=== PATIENT | female | born 1985 | race Caucasian/White ===

== ENCOUNTER 2017-04-24 06:13 | Day surgery (SDC) | payer SELFPAY ==
[2017-04-17 10:26] VITALS: BMI 21.4
[2017-04-24] MEDS ORDERED: HEPARIN NA (PORCINE) 5,000 UNITS/ML 1ML VIAL ONE (06:40)
[2017-04-24] MEDS ORDERED: EPINEPHrine 1:1,000 1 MG/1 ML - 30ML VIAL (INJECTION) ONE (07:29)
[2017-04-24] MEDS ORDERED: LIDOCAINE HCL 1%, 10 MG/ML (20ML VIAL) ONE (07:29)
[2017-04-24] MEDS ORDERED: MIDAZOLAM HCL 2 MG/2 ML SINGLE DOSE VIAL ONE (08:07)
[2017-04-24] MEDS ORDERED: SCOPOLAMINE HYDROBROMIDE 1 PATCH PATCH.TD72 ONE (08:08)
[2017-04-24] MEDS ORDERED: ACETAMINOPHEN INJECTION 100 ML IVPB ONE (08:08)
[2017-04-24] MEDS ORDERED: ceFAZolin SODIUM 1 GM VIAL ONE (08:23)
[2017-04-24] MEDS ORDERED: DEXAMETHASONE SOD PHOSPHATE 4 MG/1 ML VIAL ONE (08:23)
[2017-04-24] MEDS ORDERED: SUCCINYLCHOLINE CHLORIDE 200 MG/10 ML VIAL ONE (08:24)
[2017-04-24] MEDS ORDERED: PROPOFOL 20 ML ONE ×2 (08:24)
[2017-04-24] MEDS ORDERED: ROCURONIUM BROMIDE 50 MG/5 ML VIAL ONE (08:24)
[2017-04-24] MEDS ORDERED: BACITRACIN 15 GM TUBE TOPICAL OINTMENT ONE ×2 (09:17→09:19)
[2017-04-24] MEDS ORDERED: ePHEDrine SULFATE 50 MG/1 ML AMPULE ONE (09:49)
[2017-04-24] MEDS ORDERED: PHENYLEPHRINE HCL 10 MG/1 ML SINGLE DOSE VIAL ONE (09:52)
[2017-04-24] MEDS ORDERED: HYDROmorphone HCL/PF 1 MG/ML VIAL (FOR PYXIS CHARGING ONLY) ONE (11:55)
[2017-04-24] MEDS ORDERED: ONDANSETRON 4 MG/2 ML VIAL ONE (11:59)
[2017-04-24] MEDS ORDERED: morphine CARPU-JECT 2 MG/1 ML DISP.SYRIN IVPUSH PRN (12:23)
[2017-04-24] MEDS ORDERED: ONDANSETRON 4 MG/2 ML VIAL IVPB PRN (12:23)
[2017-04-24] MEDS ORDERED: LACTATED RINGERS SOLUTION 1,000 ML IV SCH ×2 (12:30→12:45)
--- NOTE | 2017-04-24 12:30 | OP ---
Operative Note - Note: Operative Date: 04/24/17 Pre-Operative Diagnosis: cosmetic Operation: liposuctio to back with fat grafting to buttoks Findings: none Post-Operative Diagnosis: Same as Pre-op Surgeon: Stevan Cantor Anesthesia: General Estimated Blood Loss (mls): 100 Operative Report Dictated: Yes
[2017-04-24] MEDS ORDERED: ONDANSETRON 4 MG/2 ML VIAL IVPUSH PRN (12:38)
[2017-04-24] MEDS ORDERED: PROMETHAZINE HCL 25 MG/1 ML VIAL IVPUSH PRN (12:38)
[2017-04-24] MEDS: CEFAZOLIN 1 GM/D5W 50 ML IVPB SCH ×2 (14:37→21:24)
[2017-04-24] MEDS ORDERED: ACETAMINOPHEN 325 MG TABLET (FP) PO PRN (17:07)
[2017-04-24] MEDS ORDERED: HEPARIN NA (PORCINE) 5,000 UNITS/ML 1ML VIAL SQ SCH (22:00)
[2017-04-24] MEDS ORDERED: ZOLPIDEM TARTRATE 5 MG TABLET PO ONE (22:00)
[2017-04-25] MEDS: oxyCODONE HCL 5 MG TABLET PO PRN ×2 (01:58→07:09)
[2017-04-25] MEDS: CEFAZOLIN 1 GM/D5W 50 ML IVPB SCH ×2 (02:00→08:22)
[2017-04-25 05:46] VITALS: BP 98/58; PULSE 102; TEMP 98.2
--- NOTE | 2017-04-25 07:35 | PN ---
Progress Note (short form) - Note Progress Note: all healing well ok for discharge, f/u one week
--- NOTE | 2017-04-25 09:24 | PN ---
Progress Note (short form) - Note Progress Note: ANESTHESIA POSTOP: 32 yo female. POD#1. Recovering well. Pain adequately controlled. Ambulating. Tolerating PO.
--- NOTE | 2017-04-25 11:34 | OP ---
DATE OF OPERATION: 04/24/2017 TITLE OF PROCEDURE: Liposuction to back and flanks with fat grafting to buttocks and hips. ATTENDING SURGEON: Stevan Cantor MD ASSISTANTS: None. ANESTHESIA: General endotracheal anesthesia. Patient is marked in the holding area, awake, aware of all planned areas of liposuction and fat grafting. She is counseled on the risks, benefits, and alternatives to the procedure as well as the limitations of the procedure with regard to available fat for transfer and fat survival. Patient understands. It is the patient's plan to, in the future, undergo abdominoplasty where it has been discussed with the patient that future liposuction of the resected tissue at that point may yield additional volume if needed. The patient is declining liposuction to the abdomen at this point which is understood. Patient is given 5000 units of subcutaneous heparin preoperatively. She is given YOHANNES hose and sequential compression stockings preoperatively. DESCRIPTION OF PROCEDURE: She is then brought to the operating room. She is intubated and Morrison catheter is placed while she is supine. She is then transferred to a prone position with all appropriate positioning aids. Position is carefully checked by surgical and anesthesia teams. All pressure points are carefully padded. Chest rolls are used. Patient at this point is prepped and draped in standard surgical fashion. Timeout is called. Patient, procedure, and side/sites are verified. At this point, the tumescent wetting solution is infiltrated. The solution is for every liter of normal saline 1 ampule of 1:1000 epinephrine as well as 20 mL of 1% lidocaine plain. This is the solution for the first 2 bags. The third bag contains no lidocaine. The first 1500 mL of wetting solution is infiltrated to the lower back where 25 minutes is then awaited prior to commencing liposuction. After this 25 minutes has elapsed, liposuction is performed using the SAFE technique with pre-tunneling and post-tunneling without suction. Once this is completed, the final area of tumescence which is the upper back is then infiltrated an additional 1500 mL split bilaterally. Liposuction on the upper back is awaited for an additional 25 minutes prior to beginning. The liposuction is performed using a combination of deep 5-mm cannulas as well as superficial 3-mm cannulas using the [employer] Power Assisted system. The Sun[employer] fat harvesting system is used for harvesting of the fat graft which is then processed by rinsing in gravity filtration. The fat is prepared for transfer in sterile 10-mL syringes and a Downing cannula. The liposuction aspirate is as follows: The left lower back is 700 mL, the right lower back is 800 mL, the left upper back is 300 mL, the right upper back is 300 mL, and an additional miscellaneous 100 mL is taken from all points in a more superficial plane for smooth, even contour. The post-tunneling with a non-suction 4-mm basket-tip cannula is then performed, and the liposuction incisions which were 5-mm incisions are closed with a series of interrupted 5-0 nylon suture while the fat is being prepared for injection. Several stab wound incisions are made surrounding the buttocks and the hips for fat injection. A Downing technique of microfat droplet injection is performed using a 1.2-mm injection cannula on 10-mL syringes. The injected fat is as follows: The left buttock is 250 mL, the right buttock is 280 mL, the left hip is 160 mL, and the right hip is 90 mL. Differences in volume are to account for the patient's preoperative asymmetries. The endpoint is aesthetically pleasing contour and shape. The injection sites are closed with interrupted 5-0 nylon suture. The patient is dressed with Tegaderm and Telfa and bacitracin. Compressive foam bandages are placed in the lower back to create compression along the lumbar back. The garment is then placed with the patient in a prone position. Patient is then turned to a supine position prior to extubation. Morrison catheter is removed. Patient is extubated. The garment is fastened. Patient has awoken from anesthesia, transferred to recovery without complication. Zoie [id number]
== END 2017-04-25 09:54 | disposition home or self-care (01) ==
LOC: FASU 06:13 → FM/S 12:23 → FASU 04-25 09:54
PROVIDERS: ATTEND Plastic Surgery
PROC: 0J083ZZ Alteration of Abdomen Subcutaneous Tissue and Fascia, Percutaneous Approach (ICD-10-PCS; 2017-04-24)
PROC: 0J073ZZ Alteration of Back Subcutaneous Tissue and Fascia, Percutaneous Approach (ICD-10-PCS; principal; 2017-04-24 09:05)
DX: Z41.1 Encounter for cosmetic surgery (principal)
CPT/HCPCS: 84703; 94010; 94760; J1644